=== PATIENT | male | born 1945 | race Caucasian/White ===

== ENCOUNTER 2018-06-29 06:01 | Day surgery (SDC) | payer MEDICARE ==
[2018-06-27 11:51] VITALS: BP 143/82
[2018-06-27 11:58] LABS: BASOPHILS % (AUTO) 0.7 % (0.0-5.0); EOSINOPHILS % (AUTO) 3.3 % (0.0-8.0); HEMATOCRIT 44.9 % (42-54); LYMPHOCYTES % (AUTO) 22.7 % (21.0-51.0); MEAN CORPUSCULAR HEMOGLOBIN 33.8 pg (27.0-33.0); MEAN CORPUSCULAR HGB CONC 33.9 g/dL (32.0-36.0); MEAN CORPUSCULAR VOLUME 99.8 fL (79-99); MONOCYTES % (AUTO) 9.5 % (3.0-13.0); NEUTROPHILS % (AUTO) 63.8 % (40.0-77.0); PLATELET COUNT (AUTO) 264 K/uL (130-400); RED CELL DISTRIBUTION WIDTH 12.7 % (11.0-15.5); WHITE BLOOD COUNT (AUTO) 5.8 K/uL (4.8-10.8)
[2018-06-27 12:03] LABS: APPEARANCE,URINE Clear (CLEAR); BILIRUBIN,URINE Negative (NEGATIVE); COLOR,URINE Yellow (YELLOW); GLUCOSE, URINE (UA) Negative (NEGATIVE); KETONES,URINE Trace mg/dL (NEGATIVE); LEUKOCYTE ESTERASE ,URINE Negative (NEGATIVE); NITRATE,URINE Negative (NEGATIVE); OCCULT BLOOD,URINE Negative (NEGATIVE); PROTEIN,URINE Negative (NEGATIVE)
[2018-06-27 12:32] LABS: INR 0.97 (0.85-1.15); PARTIAL THROMBOPLASTIN TIME 27.8 SEC (26.3-35.5); PROTHROMBIN TIME 10.2 SEC (9.6-11.6)
[2018-06-27 12:40] LABS: CREATININE 1.1 mg/dL (0.5-1.5)
[2018-06-27 12:43] LABS: BACTERIA,URINE Rare /HPF (None Seen); RBC,URINE 0-1 /HPF (0-1); SQUAMOUS EPITHELIAL CELL,UR Rare /HPF (0-2); WBC,URINE 0-1 /HPF (0-1)
[2018-06-29] VITALS (14 sets, daily range): BP systolic 126–158; BP diastolic 77–93
[~2018-06-29] VITALS: Ht 175.3 cm; Wt 87.5 kg
[~2018-06-29 06:01] MED LIST: ASPI-555 PO; CARV3.12 PO; LEVO100T12 PO; NITR0.4T50 SL; SIMV20TA6 PO
[2018-06-29] MEDS ORDERED: CEFAZOLIN SODIUM 1 GM VIAL ONE (06:25)
[2018-06-29] MEDS ORDERED: LACTATED RINGERS 1000ML 1,000 ML IV ONE (06:25)
[2018-06-29] MEDS ORDERED: BUPIVACAINE/EPI/PF 0.5% 30ML VIAL IJ ONE (06:50)
[2018-06-29] MEDS ORDERED: EPINEPHRINE 1 MG/ML 30ML VIAL IJ ONE (07:07)
[2018-06-29] MEDS ORDERED: TADA2.5T PO (07:16)
[2018-06-29] MEDS ORDERED: LIDOCAINE PF 2% 5ML ABBOJECT ONE ×3 (07:28→08:28)
[2018-06-29] MEDS ORDERED: SUCCINYLCHOLINE 200MG/10ML SYR ONE (07:28)
[2018-06-29] MEDS ORDERED: GLYCOPYRROLATE 1 MG/5 ML SYRINGE ONE (07:29)
[2018-06-29] MEDS ORDERED: PROPOFOL 10 MG/ML 20ML VIAL IV ONE (07:29)
[2018-06-29] MEDS ORDERED: DEXAMETHASONE SOD PHOSPHATE 10MG/ML 1ML VIAL ONE (07:29)
[2018-06-29] MEDS ORDERED: ROCURONIUM 10MG/1ML SYR 10 MG/ML ML ONE (07:29)
[2018-06-29] MEDS ORDERED: MIDAZOLAM HCL 1 MG/ML 2ML VIAL ONE (07:29)
[2018-06-29] MEDS ORDERED: FENTANYL CITRATE PF 50 MCG/1 ML 2ML VIAL ONE ×2 (07:29→09:16)
[2018-06-29] MEDS ORDERED: NEOSTIGMINE 5MG/5ML SYR IV ONE (07:29)
[2018-06-29] MEDS ORDERED: ONDANSETRON HCL 4 MG/2 ML VIAL ONE (07:29)
[2018-06-29] MEDS ORDERED: EPHEDRINE SULFATE 50 MG/ML AMPULE ONE (07:52)
[2018-06-29] MEDS ORDERED: CEFAZOLIN SODIUM 1 GM VIAL IVP PRN (08:00)
[2018-06-29] MEDS ORDERED: SODIUM CHLORIDE 0.9% 10 ML VIAL ONE (08:11)
[2018-06-29] MEDS ORDERED: PHENYLEPHRINE HCL 10 MG/ML 1ML VIAL IV ONE (08:11)
[2018-06-29] MEDS ORDERED: MEPERIDINE-PF 25 MG/ML SYG ONE ×2 (08:49→09:02)
== END 2018-06-29 10:20 | disposition home or self-care (01) ==
LOC: DAH 06:01
PROVIDERS: ATTEND Orthopaedic Surgery Adult Reconstructive Orthopaedic Surgery
DX: M23.201 Derangement of unspecified lateral meniscus due to old tear or injury, left knee (principal); M23.222 Derangement of posterior horn of medial meniscus due to old tear or injury, left knee; I25.10 Atherosclerotic heart disease of native coronary artery without angina pectoris; I11.9 Hypertensive heart disease without heart failure; Z95.5 Presence of coronary angioplasty implant and graft; Z98.890 Other specified postprocedural states; Z79.899 Other long term (current) drug therapy; E78.5 Hyperlipidemia, unspecified; H91.91 Unspecified hearing loss, right ear; Z79.01 Long term (current) use of anticoagulants; E07.9 Disorder of thyroid, unspecified
CPT/HCPCS: 29880; 36415; 80048; 81001; 85025; 85610; 85730; A4649 ×3; A4930; A6223; J0171; J0330; J0690; J1100; J2001 ×3; J2175 ×2; J2250; J2370; J2405; J2704; J2710; J3010 ×2; J3490 ×3; J7120 ×2

== ENCOUNTER → 2021-12-28 | Outpatient (CLI) | payer MEDICARE ==
[~2021-12-28] VITALS: Ht 175.3 cm; Wt 87.5 kg
[~2021-12-28] MED LIST changes: -ASPI-555 PO; +ASPI-556 PO; +REGADENOSON 0.4 MG/5 ML PF SYG IVP SCH; +SIMV-43 PO; -SIMV20TA6 PO; +TADA2.5T PO
== END | disposition home or self-care (01) ==
LOC: SHCH 08:31
PROVIDERS: ATTEND Internal Medicine Cardiovascular Disease
DX: E78.5 Hyperlipidemia, unspecified (principal); I25.10 Atherosclerotic heart disease of native coronary artery without angina pectoris; Z13.6 Encounter for screening for cardiovascular disorders; Z95.5 Presence of coronary angioplasty implant and graft
CPT/HCPCS: 78452; 93017; 96374; A9500 ×2; J2785